=== PATIENT | female | born 1990 | race Caucasian/White ===

== ENCOUNTER → 2016-12-18 | Outpatient (CLI) | payer OTHER ==
[~2016-12-18] MED LIST: CEPH250C PO; NORG0.253 PO
[2016-12-18 10:49] LABS: HEMATOCRIT 36.2 % (35.0-46.0); MEAN CELL VOLUME 88.9 FL (80.0-100.0); MEAN CORPUSCULAR HGB CONC 33.7 % (32.0-36.0); PLATELET COUNT 424 TH/MM3 (150-450); RED BLOOD COUNT 4.07 MIL/MM3 (4.00-5.30); RED CELL DISTRIBUTION WIDTH 13.9 % (11.6-17.2); REVIEW FLAG FINAL
== END ==
LOC: CPRE 10:21
PROVIDERS: ATTEND Specialist
DX: Z01.812 Encounter for preprocedural laboratory examination (principal); J35.01 Chronic tonsillitis
CPT/HCPCS: 36415; 85027

== ENCOUNTER → 2016-12-24 | Day surgery (SDC) | payer OTHER ==
--- NOTE | 2016-12-22 14:49 | MH ---
cc: ALEX BERUMEN DATE OF ADMISSION: 12/24/2016 HISTORY OF PRESENT ILLNESS This is a 26-year-old with chronic tonsillitis for tonsillectomy/ PAST MEDICAL HISTORY Unremarkable. PAST SURGICAL HISTORY Unremarkable. REVIEW OF SYSTEMS, FAMILY HISTORY, SOCIAL HISTORY Unremarkable. PHYSICAL EXAMINATION GENERAL: A well-appearing patient in no acute distress is noted. HEENT: Exam reveals significant tonsillar hypertrophy. LUNGS: Clear. HEART: Regular rate and rhythm. ABDOMEN: Soft and nontender. EXTREMITIES: Without cyanosis, clubbing or edema. NEUROLOGIC: Alert and oriented. Nonfocal neurologic exam. IMPRESSION AND PLAN This is a patient with chronic tonsillitis for tonsillectomy. Instructed as to the method of surgery and possible complications including anesthetic complications, cardiac difficulty, pulmonary difficulty, stroke, or even , surgical complications of bleeding, infection, risk of transfusion, risk of pharyngeal insufficiency, nasopharyngeal stenosis, persistent bleeding, recurrent surgery and transfusion requirement. The patient appeared to agree, accept and understand the above-mentioned risks and benefits. In addition, no guarantees or warranties regarding the outcome were given. We will therefore proceed with surgery. MD LUCA Solomon/ASHLEY /2:35 PM /2:37 PM
[~2016-12-24] VITALS: Ht 165.1 cm; Wt 118.0 kg
[~2016-12-24] MED LIST changes: +*morphine SULFATE 8 MG/ML PERIprocedure ONLY ONE; +ACETAMINOPHEN 325MG/HYDROcodone 7.5MG/15ML UDC PO PRN; -CEPH250C PO; +CHLORHEXIDINE GLUCONATE 2 % 1 PACK (2 CLOTHS) TOPICAL PRN; +DO NOT ADM ANY ANTICOAGULANT DRUGS PRN; +INSULIN HUMAN REGULAR 1,000 UNITS/10 ML VIAL SQ PRN; +LACTATED RINGER'S 1000 ML INJ 1,000 ML IV ONE; +LACTATED RINGER'S 1000 ML IV PRN; +METOPROLOL TARTRATE 25 MG TAB PO PRN; +MIDAZOLAM HCL 2 MG/2 ML VIAL ONE; +MORPHINE SULFATE 4 MG/ML INJ IV PRN; +ONDANSETRON HCL 4 MG/2 ML VIAL IV PUSH ONE; +ONDANSETRON HCL 4 MG/2 ML VIAL IV PUSH PRN; +POVIDONE IODINE 5% (ANTISEPSIS KIT) 4 APPLICATIONS EACH NARE PRN; +PROPOFOL 200 MG/20 ML AMP IV ONE; +SODIUM CHLORID 0.9% 500 ML IV PRN; +SUGAMMADEX SODIUM 200 MG/2 ML VIAL IV PUSH ONE; +fentaNYL CITRATE 250 MCG/5 ML AMP ONE
[2016-12-24 06:14] VITALS: BP 143/86; PULSE 84; RESP 18; TEMP 98.2; O2SAT 98
[2016-12-24 09:30] VITALS: BP 138/77; PULSE 85; RESP 16; TEMP 97.8; O2SAT 96
--- NOTE | 2016-12-24 11:33 | MP ---
cc: ALEX BERUMEN DATE OF SURGERY 12/24/2016 PREOPERATIVE DIAGNOSIS Chronic tonsillitis. POSTOPERATIVE DIAGNOSIS Chronic tonsillitis. PROCEDURE Tonsillectomy ANESTHESIA General anesthesia ESTIMATED BLOOD LOSS 25 cc COMPLICATIONS No complications. OPERATING SURGEON Dr. Berumen FOLLOWUP Prepped and draped in the usual fashion. Iza-Adeel mouth gag inserted per orally. A curved Allis clamp used to medialized initially left tonsil. Anterior tonsillar pillar incision made with electrocautery. Tonsil removed in plane between capsule and underlying muscle and adequate hemostasis obtained with suction electrocautery. Similar fashion on the left side as the right side, anterior tonsillar pillar incision made, the tonsil removed in the plane between the capsule and underlying muscle. Adequate hemostasis obtained with suction electrocautery. No active bleeding noted. Iza-Adeel released, reopened no bleeding noted and then removed. The patient tolerated the procedure well. MD LUCA Solomon/JULIET /9:07 AM /11:26 AM
== END | disposition home or self-care (01) ==
LOC: HSDC 05:31
PROVIDERS: ATTEND Specialist
DX: J35.01 Chronic tonsillitis (principal)
CPT/HCPCS: 00170; 42826; 88304; J2250; J2270; J2405; J3010; J7120